=== PATIENT | male | born 1945 | race Caucasian/White ===

== ENCOUNTER 2017-04-26 12:46 | Emergency (ER) | payer BC ==
[~2017-04-26] VITALS: Ht 175.3 cm; Wt 63.5 kg
[2017-04-26 17:39] VITALS: BP 139/63
== END 2017-04-26 17:40 | disposition home or self-care (01) ==
LOC: ER 12:46 → EDBD 12:46 → ER 17:40
DX: S20.212A Contusion of left front wall of thorax, initial encounter (principal); S20.211A Contusion of right front wall of thorax, initial encounter; G89.29 Other chronic pain; M54.9 Dorsalgia, unspecified; Z90.49 Acquired absence of other specified parts of digestive tract; W11.XXXA Fall on and from ladder, initial encounter; Y93.89 Activity, other specified; Y99.8 Other external cause status; Y92.89 Other specified places as the place of occurrence of the external cause
CPT/HCPCS: 71111; 93005

== ENCOUNTER 2019-03-27 03:15 | Inpatient (IN) | payer MEDICARE, OTHER ==
[~2019-03-27] VITALS: Ht 182.9 cm; Wt 70.0 kg
[2019-03-27 03:55] LABS: Basophils # (auto) 0 uL; Basophils % (auto) 0.7 % (0.0-2.0); Eosinophils # (auto) 0 uL; Eosinophils % (auto) 0.7 % (0.0-7.0); Hematocrit 38.5 % (41.0-53.0); Hemoglobin 13.2 g/dL (13.5-17.5); Lymphocytes % (auto) 27.1 % (10.0-50.0); Mean Corpuscular Hemoglobin 33.6 pg (28.0-32.0); Mean Corpuscular Hgb Conc. 34.3 g/dL (32.0-36.0); Monocytes # (auto) 0.3 uL; Monocytes % (auto) 7.2 % (0.0-12.0); Neutrophils # (auto) 2.5 uL; Neutrophils % (auto) 64.3 % (37.0-80.0); Nucleated Red Blood Cells % 0.1 %; Platelet Count (auto) 152 10^3/uL (140-450); Red Blood Cells 3.93 10^6/uL (4.5-5.90); Red Cell Distribution Width 13.6 % (11.8-14.3); White Blood Cell 3.8 10^3/uL (4.4-10.8)
[2019-03-27 04:18] LABS: Albumin 3.3 g/dL (3.4-5.0); BUN/Creatinine Ratio 15.3; Bilirubin, Total 0.5 mg/dL (0.2-1.0); Calcium 7.8 mg/dL (8.5-10.1); Potassium 3.6 mmol/L (3.5-5.1); Total Protein 6.3 g/dL (6.4-8.2)
[2019-03-27] MEDS ORDERED: TEMAZEPAM 15 MG CAP PO PRN (05:45)
[2019-03-27] MEDS ORDERED: cloNIDine HCL 0.1 MG TAB PO PRN (05:45)
[2019-03-27 05:54] LABS: Urine WBC None Seen /hpf (0 - 3)
[2019-03-27 06:19] LABS: Urine Bacteria NONE SEEN /hpf (None Seen); Urine Blood Negative /uL (Negative); Urine Specific Gravity 1.009 (1.001-1.035)
[2019-03-27] MEDS: ONDANSETRON HCL 4 MG/2 ML VIAL IV PRN ×3 (06:34→20:23)
[2019-03-27] MEDS: MORPHINE SULFATE 4 MG/ML SYR/VIAL IV PRN ×3 (06:36→20:23)
--- NOTE | 2019-03-27 08:30 | NUR ---
Telemetry admit from ER [facility] admitted to Telemetry unit after SBAR received. Patient oriented to DNEISE NDIAYE, primary RN, unit, room, bed, and unit policies regarding patient care and visiting hours. Patient now on continuous telemetry monitoring. Patient placed on bedside oxygen, weighed by bedscale and encouraged to call if they need something. All questions and concerns addressed, patient verbalized understanding. Note:
[2019-03-27 09:00] VITALS: BP 150/64
[2019-03-27] MEDS ORDERED: IBUP200C3 PO (09:11)
[2019-03-27] MEDS ORDERED: TRAZ50TA2 PO (09:11)
[2019-03-27] MEDS ORDERED: ATOR10TA PO (09:11)
[2019-03-27] MEDS ORDERED: TOPI100T68 PO (09:12)
[2019-03-27] MEDS ORDERED: KEP500T PO (09:12)
[2019-03-27] MEDS ORDERED: ESCI20TA51 PO (09:12)
[2019-03-27] MEDS ORDERED: LACO200T PO (09:12)
[2019-03-27] MEDS ORDERED: DONETAB6 PO (09:12)
[2019-03-27] MEDS: LACOSAMIDE 50 MG TAB PO SCH ×2 (10:00→21:11)
[2019-03-27] MEDS ORDERED: LEVETIRACETAM 500 MG TAB PO SCH (10:00)
[2019-03-27] MEDS ORDERED: TOPIRAMATE 25 MG TAB PO SCH (10:00)
[2019-03-27] MEDS: FAMOTIDINE 20 MG TAB PO SCH ×2 (11:08→21:12)
[2019-03-27] MEDS: buPROPion HCL 75 MG TAB PO SCH (11:08)
[2019-03-27 13:30] VITALS: BP 140/86
[2019-03-27 13:39] LABS: INR 1.06 (0.9-1.15); Partial Thromboplastin Time 28.8 sec (23.64-32.05)
[2019-03-27 17:05] VITALS: BP 145/66
--- NOTE | 2019-03-27 19:45 | NUR ---
ASSUMED CARE, PT. AWAKE, NO SOB.
--- NOTE | 2019-03-27 20:29 | NUR ---
REPORT GIVEN TO RUDOLPH VALENTINO, TO CONTINUE PT. CARE.
--- NOTE | 2019-03-27 20:29 | NUR ---
RECEIVED REPORT Received report from RUDOLPH Murrieta. Patient is A&O X's 4 with no s/s of distress noted. Patient just received pain medication for right hip/leg pain. Educated patient on pain medication/management and POC. Educated patient to use call light when in need of assistance. Patient verbalized understanding. Bed is in lowest/locked position with padded side rails up X's 2 and call light is within reach of patient. Seizure precautions are in place. Will continue care.
[2019-03-27] MEDS: LEVETIRACETAM 500 MG TAB PO SCH (21:09)
[2019-03-27] MEDS: TOPIRAMATE 100 MG TAB PO SCH (21:12)
[2019-03-27] MEDS: ATORVASTATIN 20 MG TAB PO SCH (21:12)
[2019-03-27 23:13] VITALS: BP 146/71
[2019-03-28] MEDS: ONDANSETRON HCL 4 MG/2 ML VIAL IV PRN (02:30)
[2019-03-28] MEDS: MORPHINE SULFATE 4 MG/ML SYR/VIAL IV PRN ×3 (02:30→19:25)
[2019-03-28 05:24] LABS: Basophils # (auto) 0 uL; Basophils % (auto) 0.7 % (0.0-2.0); Eosinophils # (auto) 0 uL; Eosinophils % (auto) 0.5 % (0.0-7.0); Hematocrit 38.2 % (41.0-53.0); Lymphocytes % (auto) 20.5 % (10.0-50.0); Mean Corpuscular Hemoglobin 33.1 pg (28.0-32.0); Mean Corpuscular Volume 97.4 fL (80.0-100.0); Monocytes # (auto) 0.5 uL; Monocytes % (auto) 10.4 % (0.0-12.0); Neutrophils # (auto) 3.4 uL; Neutrophils % (auto) 67.9 % (37.0-80.0); Platelet Count (auto) 125 10^3/uL (140-450); Red Blood Cells 3.92 10^6/uL (4.5-5.90); Red Cell Distribution Width 13.6 % (11.8-14.3)
[2019-03-28 05:46] VITALS: BP 155/75
[2019-03-28 05:58] LABS: Calcium 7.7 mg/dL (8.5-10.1); Potassium 4.1 mmol/L (3.5-5.1)
--- NOTE | 2019-03-28 08:19 | NUR ---
OPENING SHIFT NOTE ASSUMED CARE OF PATIENT. PATIENT IS AWAKE AND ALERT. NO SOB OR SIGNS OF DISTRESS NOTED. INSTRUCTED ON POC AND TO CALL FOR HELP PRN. BED IN LOWEST POSITION WITH SIDE RAILS UP X2. WILL CONTINUE TO MONITOR.
[2019-03-28 09:15] VITALS: BP 143/60
[2019-03-28] MEDS: FAMOTIDINE 20 MG TAB PO SCH ×2 (09:21→21:01)
[2019-03-28] MEDS: TOPIRAMATE 100 MG TAB PO SCH ×3 (09:22→21:00)
[2019-03-28] MEDS: LEVETIRACETAM 500 MG TAB PO SCH ×2 (09:23→21:00)
[2019-03-28] MEDS: buPROPion HCL 75 MG TAB PO SCH (09:23)
[2019-03-28] MEDS: LACOSAMIDE 50 MG TAB PO SCH ×2 (09:24→21:01)
[2019-03-28 13:00] VITALS: BP_SYST 111; BP_SYST 154; BP_DIAS 60; BP_DIAS 76
[2019-03-28 17:00] VITALS: BP_SYST 152; BP_SYST 182; BP_DIAS 72; BP_DIAS 73
--- NOTE | 2019-03-28 19:15 | NUR ---
OPENING NOTE- NOC SHIFT PATIENT IS ALERT AND ORIENTED X4, ANSWERS IN COMPLETE SENTENCES AND MAKES APPROPRIATE EYE CONTACT. PATIENT IS IN BED, BED IS LOCKED AT LOWEST AND PADDED FOR SEIZURE PRECAUTIONS. BED SIDE TABLE WITHIN REACH, CALL LIGHT WITHIN REACH. DISCUSSED POC WITH PATIENT AND INSTRUCTED PATIENT TO CALL PRN; PATIENT VERBALIZED UNDERSTANDING. WILL CONTINUE TO MONITOR Q1H AND PRN.
[2019-03-28] MEDS: ATORVASTATIN 20 MG TAB PO SCH (21:01)
[2019-03-28 22:00] VITALS: BP 158/66
[2019-03-29] MEDS: MORPHINE SULFATE 4 MG/ML SYR/VIAL IV PRN ×2 (03:50→18:56)
[2019-03-29 04:49] VITALS: BP 148/66
--- NOTE | 2019-03-29 07:30 | NUR ---
Opening Shift Note Assumed care of patient, awake and alert. No S/S of distress/SOB or pain. Instructed on POC and to callfor assist PRN, will continue to monitor for changes Q1hr and PRN.
[2019-03-29 09:00] VITALS: BP 147/84
[2019-03-29] MEDS: LEVETIRACETAM 500 MG TAB PO SCH ×2 (09:56→21:22)
[2019-03-29] MEDS: buPROPion HCL 75 MG TAB PO SCH (09:57)
[2019-03-29] MEDS: TOPIRAMATE 100 MG TAB PO SCH ×3 (09:57→21:23)
[2019-03-29] MEDS: LACOSAMIDE 50 MG TAB PO SCH ×2 (09:57→21:46)
[2019-03-29] MEDS: FAMOTIDINE 20 MG TAB PO SCH ×2 (09:57→21:24)
[2019-03-29 13:00] VITALS: BP 142/63
[2019-03-29] MEDS ORDERED: TRANEXAMIC ACID 20 ML ONE (15:19)
[2019-03-29] MEDS ORDERED: BUPIVACAINE W/ EPINEPH 0.25% INJ 50ML MDV ONE (15:19)
[2019-03-29] MEDS ORDERED: TETRACAINE 1% INJ 2 ML VIAL IJ ONE ×2 (15:20→15:22)
[2019-03-29] MEDS ORDERED: SUCCINYLCHOLINE CHLORIDE 20 MG/ML 10ML VIAL IV ONE (15:20)
[2019-03-29] MEDS ORDERED: MORPHINE SULF(PF) 0.5MG/ML 10ML VIAL ONE ×2 (15:22→15:23)
[2019-03-29] MEDS ORDERED: VANCOMYCIN HCL 1000 MG VL ONE (15:22)
[2019-03-29] MEDS ORDERED: KETOROLAC TROMETH 30 MG/ML 1ML VIAL ONE (15:22)
[2019-03-29] MEDS ORDERED: fentaNYL CITRATE 100 MCG/2 ML VL ONE (15:23)
[2019-03-29] MEDS ORDERED: MIDAZOLAM HCL 1MG/1ML-2 ML VIAL ONE (15:23)
[2019-03-29] MEDS ORDERED: ONDANSETRON HCL 4 MG/2 ML VIAL ONE (15:23)
[2019-03-29] MEDS ORDERED: PROPOFOL 10 MG/ML 20 ML IV ONE (15:23)
[2019-03-29] MEDS ORDERED: SODIUM CHLORIDE LOCK 10 ML ONE (15:23)
[2019-03-29] MEDS ORDERED: EPINEPHrine HCL 1 MG/1 ML AMP ONE (15:23)
[2019-03-29] MEDS ORDERED: BUPIVACAINE/DEXTROSE MPF 0.75% 2 ML AMP IT ONE (15:23)
--- NOTE | 2019-03-29 15:24 | NUR ---
PATIENT WHEELED DOWN TO RECOVERY ROOM FOR PROCEDURE. NO S/S OF DISTRESS NOTED AT THIS TIME.
[2019-03-29] MEDS ORDERED: ceFAZolin 1GM/50ML 50 ML IV ONE (15:36)
--- NOTE | 2019-03-29 15:38 | NUR ---
NUTRITION ASSESSMENT NOTES Please refer to link notes of nutrition screen form filed under the intervention section of the plan of care for further details. Est. Needs: 1850 kcal to 2350 kcal (25-30 kcal/kgBW), 74 gms to 89 gms pro (1.0-1.2 gms/kgBW). Will continue to monitor pertinent labs and reassess nutrient need prn Thank you. Addendum: 03/29/19 at [address] Amended: Links added.
--- NOTE | 2019-03-29 15:55 | NUR ---
PATIENT BROUGHT BACK UP TO FLOOR. PER RIM FIRE CHARGER OPERATORRUDOLPH SNIDER PATIENT WILL BE SCHEDULED FOR PROCEDURE TOMORROW THEY WERE BUSY.
--- NOTE | 2019-03-29 16:00 | NUR ---
GEOFF NORRIS OF POSTPONEMENT OF SURGERY UNTIL TOMORROW.
--- NOTE | 2019-03-29 16:22 | NUR ---
Pt is an alert and oriented 74 yo male that has been functioning independently and resides with his spouse, Lalita. Pt has a daughter that resides in the area and is supportive as well as involved. Pt states he had a previous hip fracture and went to [facility] post discharge for rehab. Pt and spouse both state they do not want rehab placement and want to go home after discharge. Pt is scheduled for surgery today. Discharge planning would involve a fww, possible [facility] and [facility] for physical therapy. Pt and spouse state they have no preference. Provided choice list and selected [facility]. Signed choice letter and all arrangements to be completed after surgery. Will continue to monitor and provide intervention as appropriate. Addendum: 03/29/19 at 1625 by MIGUEL GARCIA Amended: Links added.
[2019-03-29 17:00] VITALS: BP 161/61
--- NOTE | 2019-03-29 20:20 | NUR ---
RECEIVE IN BED IS AWARE HE WILL BE NPO AFTER MIDNIGHT FOR SURGERY
[2019-03-29] MEDS: ATORVASTATIN 20 MG TAB PO SCH (21:25)
[2019-03-29 22:00] VITALS: BP_SYST 139; BP_SYST 146; BP_DIAS 61; BP_DIAS 96
[2019-03-30] MEDS: MORPHINE SULFATE 4 MG/ML SYR/VIAL IV PRN ×2 (01:04→15:59)
[2019-03-30 04:52] VITALS: BP 140/64
--- NOTE | 2019-03-30 06:40 | NUR ---
TO PREOP HOLDING VIA BED
[2019-03-30] MEDS: BUPIVACAINE W/ EPINEPH 0.25% INJ 50ML MDV ONE ×2 (06:58→09:10)
[2019-03-30] MEDS ORDERED: MORPHINE SULF(PF) 0.5MG/ML 10ML VIAL ONE (06:59)
[2019-03-30] MEDS ORDERED: VANCOMYCIN HCL 1000 MG VL ONE (07:00)
[2019-03-30] MEDS: KETOROLAC TROMETH 30 MG/ML 1ML VIAL ONE ×2 (07:00→09:10)
[2019-03-30] MEDS ORDERED: ceFAZolin 1GM/50ML 100 ML IV ONE (07:04)
[2019-03-30] MEDS ORDERED: LIDOCAINE 1% HCL (LOCAL ANESTH.) INJ 20ML MDV ONE (07:10)
[2019-03-30] MEDS ORDERED: SUCCINYLCHOLINE CHLORIDE 20 MG/ML 10ML VIAL IV ONE (07:10)
[2019-03-30] MEDS ORDERED: ROCURONIUM 10MG/ML 10ML VIAL IV ONE (07:13)
[2019-03-30] MEDS ORDERED: ETOMIDATE (2MG/ML) 20ML VIAL IV ONE (07:13)
[2019-03-30] MEDS ORDERED: MIDAZOLAM HCL 1MG/1ML-2 ML VIAL ONE (07:13)
[2019-03-30 07:23] LABS: Basophils # (auto) 0 uL; Basophils % (auto) 0.3 % (0.0-2.0); Eosinophils # (auto) 0.1 uL; Eosinophils % (auto) 1.2 % (0.0-7.0); Hematocrit 37.5 % (41.0-53.0); Hemoglobin 12.9 g/dL (13.5-17.5); Lymphocytes # (auto) 0.8 uL; Lymphocytes % (auto) 15.5 % (10.0-50.0); Mean Corpuscular Hemoglobin 33.7 pg (28.0-32.0); Mean Corpuscular Hgb Conc. 34.5 g/dL (32.0-36.0); Mean Corpuscular Volume 97.6 fL (80.0-100.0); Monocytes # (auto) 0.6 uL; Monocytes % (auto) 11.9 % (0.0-12.0); Neutrophils # (auto) 3.5 uL; Neutrophils % (auto) 71.1 % (37.0-80.0); Platelet Count (auto) 135 10^3/uL (140-450); Red Blood Cells 3.84 10^6/uL (4.5-5.90); Red Cell Distribution Width 13.5 % (11.8-14.3)
[2019-03-30] MEDS ORDERED: METOCLOPRAMIDE HCL 5MG/ml INJ 2ml VIAL ONE (07:23)
[2019-03-30] MEDS ORDERED: fentaNYL CITRATE 100 MCG/2 ML VL ONE (07:31)
[2019-03-30 07:40] LABS: INR 1.03 (0.9-1.15)
[2019-03-30] MEDS ORDERED: ONDANSETRON HCL 4 MG/2 ML VIAL IV PRN (07:45)
[2019-03-30] MEDS ORDERED: NALOXONE HCL 0.4 MG/ML VIAL IV PRN (07:45)
[2019-03-30] MEDS ORDERED: HYDROmorphone HCL 2 MG/ML VL IV PRN (07:45)
[2019-03-30] MEDS ORDERED: hydrALAZINE HCL 20 MG/ML VL IV PRN (07:45)
--- NOTE | 2019-03-30 08:01 | NUR ---
Opening Shift Note Assumed care of patient, PT is currently down in OR for procedure, noc rn took to OR room
[2019-03-30] MEDS: TOPIRAMATE 100 MG TAB PO SCH ×3 (09:00→21:13)
[2019-03-30] MEDS: LEVETIRACETAM 500 MG TAB PO SCH ×2 (09:00→21:12)
[2019-03-30] MEDS ORDERED: NEOSTIGMINE 1 MG/ML INJ (10mg/10ML VIAL) ONE (09:01)
[2019-03-30] MEDS ORDERED: GLYCOPYRROLATE 0.2 MG/ML 1ML VIAL ONE (09:01)
[2019-03-30] MEDS ORDERED: ceFAZolin 1GM/50ML 50 ML IV SCH (09:15)
[2019-03-30] MEDS: HYDROmorphone HCL 2 MG/ML VL IV PRN ×3 (09:23→09:47)
--- NOTE | 2019-03-30 09:56 | NUR ---
md smith at station to round on pt informed pt still in OR and not on the floor
--- NOTE | 2019-03-30 09:57 | NUR ---
Recived report from OR nurse status post right hemiplasty BP 164/67
--- NOTE | 2019-03-30 10:12 | NUR ---
pt arrived on unit
--- NOTE | 2019-03-30 10:20 | NUR ---
pt and daughter at bedside with pt
[2019-03-30] MEDS: FAMOTIDINE 20 MG TAB PO SCH ×2 (10:38→21:12)
[2019-03-30] MEDS: buPROPion HCL 75 MG TAB PO SCH (10:38)
[2019-03-30] MEDS: HYDROcodone-ACET 5/325MG TAB PO PRN (10:38)
[2019-03-30] MEDS: ENOXAPARIN SOD 40 MG/0.4 ML SYRINGE SC SCH (10:38)
[2019-03-30] MEDS: LACTATED RINGER'S 1,000 ML IV SCH ×2 (10:39→19:10)
[2019-03-30] MEDS: LACOSAMIDE 50 MG TAB PO SCH ×2 (10:39→21:32)
--- NOTE | 2019-03-30 12:05 | NUR ---
New iv site started right upper arm 20 gauge tolerated well iv patent blood return noted no c/o pain or discomfort, LAC iv discontinued no bleeding noted
[2019-03-30 13:00] VITALS: BP 127/62
--- NOTE | 2019-03-30 13:38 | NUR ---
called pharmacy to check compatibility of lactated ringers with ancef, per pharmacy it is compatible
[2019-03-30] MEDS: ceFAZolin 1GM/50ML 50 ML IV SCH ×2 (13:45→20:59)
--- NOTE | 2019-03-30 15:12 | NUR ---
D/C Planning Per consult for [facility] for Physical Therapy. Mian provided information and choice letter to Pt. Contact [facility] Ph:) Fax:) faxed medical records. Per Jamshid from [facility] Pt has been accepted and service to start within 48hrs upon d/c day. Pt was sleeping however, I spoke to Pt Lalita regarding home health acceptance. Pt Lalita verbalize understanding d/c plan. Addendum: 03/30/19 at 1518 by CARLOS HOLLY Amended: Links added.
[2019-03-30 16:35] VITALS: BP 126/62
--- NOTE | 2019-03-30 17:45 | NUR ---
bed bath given to pt, no skin breakdown or redness noted, dressing to right hip intact and dry
[2019-03-30] MEDS: ACETAMINOPHEN 325 MG TAB PO PRN (21:00)
[2019-03-30] MEDS: ATORVASTATIN 20 MG TAB PO SCH (21:13)
[2019-03-30 21:44] VITALS: BP 146/65
[2019-03-31] MEDS: HYDROcodone-ACET 5/325MG TAB PO PRN (01:46)
[2019-03-31 01:48] VITALS: BP 115/81
[2019-03-31] MEDS: LACTATED RINGER'S 1,000 ML IV SCH ×2 (03:01→15:10)
[2019-03-31] MEDS: ceFAZolin 1GM/50ML 50 ML IV SCH (03:01)
[2019-03-31 05:06] VITALS: BP 130/56
[2019-03-31] MEDS: MORPHINE SULFATE 4 MG/ML SYR/VIAL IV PRN ×3 (06:04→22:17)
--- NOTE | 2019-03-31 07:19 | NUR ---
Patient sitting in bed, awake, oriented x4, on O2 at 1 LPM, no acute distress noted. Aqua cell dressing intact, no bleeding noted on the right hip.
--- NOTE | 2019-03-31 07:20 | NUR ---
About 200 ml of dark lou urine emptied form the urinal.
[2019-03-31 08:43] VITALS: BP 152/62
[2019-03-31] MEDS: LACOSAMIDE 50 MG TAB PO SCH ×2 (10:00→22:04)
[2019-03-31] MEDS: FAMOTIDINE 20 MG TAB PO SCH ×2 (10:11→21:21)
[2019-03-31] MEDS: buPROPion HCL 75 MG TAB PO SCH (10:11)
[2019-03-31] MEDS: TOPIRAMATE 100 MG TAB PO SCH ×3 (10:11→21:21)
[2019-03-31] MEDS: LEVETIRACETAM 500 MG TAB PO SCH ×2 (10:11→21:20)
[2019-03-31] MEDS: ENOXAPARIN SOD 40 MG/0.4 ML SYRINGE SC SCH (10:12)
--- NOTE | 2019-03-31 10:15 | NUR ---
Family member at bedside.
--- NOTE | 2019-03-31 10:18 | NUR ---
About 400 ml of dark lou urine emptied from the urinal.
--- NOTE | 2019-03-31 10:18 | NUR ---
Patient stated he's in pain, asked for pain shot. Explained to patient the Morphine Sulf Inj is not due at this time. Patient refused Harrison , stated it makes him feel weird. Patient will wait for the Morphine Sulf Inj when it's due.
--- NOTE | 2019-03-31 11:10 | NUR ---
Forest Pathology Teacher Yoana Hawley to come over and speak with the patient as requested by the family member.
--- NOTE | 2019-03-31 11:24 | NUR ---
Carlos Sousa at bedside. MD to discharge the patient today. Informed MD patient has no bowel movement yet since [address] Meza ordered Lactulose 60 ml once for constipation, follow up with physical therapy, give the Morphine Sulf Inj now before the physical therapy, call Robotics Specialist for walker at home.
[2019-03-31] MEDS ORDERED: LACTULOSE 20Gm/30ML SOLN PO ONE (11:30)
--- NOTE | 2019-03-31 11:40 | NUR ---
Patient and said they want a wheelchair, they will buy a walker. Explained to patient and , it will depend on the insurance if they will cover the wheelchair. Carlos Sousa ordered to change the Community Service Manager Consult for wheelchair instead of walker.
--- NOTE | 2019-03-31 11:51 | NUR ---
Patient stated his right hip pain level at 9/10 at this time. Morphine Sulf Inj 2 mg given for pain as ordered.
[2019-03-31 13:00] VITALS: BP 158/69
--- NOTE | 2019-03-31 14:25 | NUR ---
Paged Center Consultant Monse.
--- NOTE | 2019-03-31 14:34 | NUR ---
REPORT RECEIVED WILL CONTINUE TO MONITOR AND INITIATE PLAN OF CARE. PLAN FOR DISCHARGE-PENDING SOCIAL SERVICE FOR WHEELCHAIRALBERTO UPDATED BY BEDSIDE RN RONNI.
--- NOTE | 2019-03-31 14:39 | NUR ---
VOID LAST NOTED--NOT ASSUMING CARE OF THIS PATIENT. BEDSIDE RN ETHYL TO CONTINUE CARE.
--- NOTE | 2019-03-31 14:52 | NUR ---
requested that patient be transferred to rehab because during physical therapy, patient needed maximum assist getting up from bed to a chair. Will call Dr. Meza.
--- NOTE | 2019-03-31 14:55 | NUR ---
Called Carlos Sousa that requested to transfer the patient to rehab, stated that patient is unable to transfer from bed to a chair without maximum assist during physical therapy. Dr. Meza ordered to hold the discharge home with home health services, ordered Wire Preparation Worker Consult for SNF transfer, he will see the patient tomorrow. Informed the patient and .
--- NOTE | 2019-03-31 15:00 | NUR ---
Patient sitting in chair, asked if he can have cigar. Explained to patient he cannot lit up in the room, smoking in the hospital not allowed, I can call the doctor for orders for Nicotine patch. Patient refused Nicotine patch. Explained to patient if he will smoke off unit, he will have to sign an Against Medical Advice to smoke, he needs maximum assist getting to a wheelchair and getting back to bed, and his will have to push the wheelchair going off unit and back to room. Patient said he will stay in the room, he will not smoke. at bedside.
--- NOTE | 2019-03-31 15:01 | NUR ---
Patient tolerating food. Lactated Ringers held when patient tolerating liquids.
--- NOTE | 2019-03-31 15:18 | NUR ---
Paged the Physical Therapist that patient wants to go back to bed. Patient in chair. at bedside.
[2019-03-31 17:32] VITALS: BP 156/70
--- NOTE | 2019-03-31 19:40 | NUR ---
Opening Shift Note Assumed care of patient, awake and alert. No S/S of distress/SOB or pain. Dressing to right hip dry and intact, no drainage/bleeding noted. Instructed on POC and to call for assist PRN, patient verbalized understanding, call light within reach, bed alarm on, will continue to monitor for changes Q1hr and PRN.
[2019-03-31] MEDS: ATORVASTATIN 20 MG TAB PO SCH (21:21)
[2019-03-31 22:00] VITALS: BP 134/60
[2019-04-01] MEDS: LACTATED RINGER'S 1,000 ML IV SCH ×2 (01:10→08:55)
[2019-04-01 05:00] VITALS: BP 131/68
--- NOTE | 2019-04-01 07:40 | NUR ---
Patient sitting in bed, awake, oriented x4, no acute distress noted.
[2019-04-01] MEDS: TOPIRAMATE 100 MG TAB PO SCH ×3 (08:58→21:23)
[2019-04-01] MEDS: LEVETIRACETAM 500 MG TAB PO SCH ×2 (08:58→21:21)
[2019-04-01] MEDS: ENOXAPARIN SOD 40 MG/0.4 ML SYRINGE SC SCH (08:59)
[2019-04-01] MEDS: buPROPion HCL 75 MG TAB PO SCH (08:59)
[2019-04-01] MEDS: FAMOTIDINE 20 MG TAB PO SCH ×2 (08:59→21:26)
[2019-04-01 09:00] VITALS: BP 127/76
[2019-04-01] MEDS: LACOSAMIDE 50 MG TAB PO SCH ×2 (09:00→21:26)
--- NOTE | 2019-04-01 09:25 | NUR ---
Eligibility Worker Monse came over. Monse said patient got accepted at [facility], to call her again if patient is ready for discharge, for bed availability and transportation. Waiting for hospitalist to come over.
--- NOTE | 2019-04-01 09:31 | NUR ---
D/C Planning Per consult for SNF placement for rehab. Pt Lalita was at bedside when information and choice letter was given to Pt. Pt and requested [facility]. Pt and verbalize understanding d/c plan. Contact [facility] Ph:) Fax:) faxed medical records. Per Zia from [facility] Pt has been accepted to room 104 bed [address] Raines. Contact [facility] Ph:) spoke to Matias. Advised Matias from [facility] to arrange transportation at 15:00 via gurney with oxygen. Per Matias from [facility] order picker/assembler time will be between 15:00-16:00 via gurney with oxygen. Informed RUDOLPH Greene. Addendum: 04/01/19 at 0945 by CARLOS HOLLY Amended: Links added.
--- NOTE | 2019-04-01 09:55 | NUR ---
Patient in the room, having physical therapy, being assisted by
--- NOTE | 2019-04-01 10:00 | NUR ---
Patient sitting in chair, patient has slurred speech. BP = 85/72, Heart rate = 95, RR = 19, O2 Sat = 98% to 100% on O2 at 2 LPM. said patient started having slurred speech after walking for physical therapy. Family at bedside.
--- NOTE | 2019-04-01 10:08 | NUR ---
Carlos Sousa at bedside. Patient is sitting in chair. MD assessed the patient. Dr. Meza to put in orders for CT Scan Brain, Neurology Consult with Dr. Purvis.
--- NOTE | 2019-04-01 10:15 | NUR ---
Mikie Sousa. speaking with Dr. Purvis on the phone.
--- NOTE | 2019-04-01 10:21 | NUR ---
Called [facility] ([phone]). Informed Nurse Silvia that patient's transfer is cancelled today as ordered.
--- NOTE | 2019-04-01 10:23 | NUR ---
Called Supervisor Scenic Arts Monse that patient's transfer to [facility] is cancelled today as per Mikie Sousa. I already called Nurse Silvia at [facility].
--- NOTE | 2019-04-01 10:30 | NUR ---
D/C search analyst Ramona advised me at 10:20am this morning Dr. Meza placed orders for CT Scan Brain, Neurology Consult with Dr. Purvis. Followed up call to [facility] spoke to Zia. Informed Zia Pt will not be discharging today and I would follow up with her upon d/c day. Followed up call to [facility] transport spoke to Matias regarding transportation cancelation for now. Will followed up with Facility and transportation upon d/c day.
--- NOTE | 2019-04-01 11:23 | NUR ---
Informed Carlos Sousa of the CT Brain without contrast results.
[2019-04-01 13:00] VITALS: BP 132/68
--- NOTE | 2019-04-01 14:02 | NUR ---
Carlos Sousa called back. ordered MRI Brain w/o Contrast Stat. Dr. Meza ordered to clarify with MRI if they will be able to do it, with patient's vagal stimulator implant on the left upper chest and patient is post op right hip hemiarthroplasty. If MRI cannot be done, wait for Dr. Purvis to see the patient for Neurology Consult.
--- NOTE | 2019-04-01 14:14 | NUR ---
Nutrition Follow-up Notes Wt.: 69.8 kg as of yesterday. Pt's on oxygen via nasal cannula, asleep, no immediate family member at bedside during rounds this morning. Pt's s/p Right hip hemiarthroplasty (03/30/19), no signs of distress noted earlier, currently on Regular diet with fair PO intake aeb 70% ave. consumed meals (x6) in last 2.5 days. Noted pt's for active Neurology consult. Est. Needs: 1850 kcal to 2350 kcal (25-30 kcal/kgBW), 74 gms to 89 gms pro (1.0-1.2 gms/kgBW). Will continue to monitor pertinent labs and reassess nutrient need prn Labs: No new labs today; 03/28/19 Ca 7.7 L, Tpro 6.9 L, Alb 3.3 L Skin: Tony scale 14, mod risk, pt's right hip incision dry and intact per travel pt. GI: Pt's no bowel activity since per travel pt. PES: Partially resolved: Increased nutrient needs r/t acute/chronic medical/ nutritional status aeb 92% IBW, BMI 74.4 kg/m2, decreased muscle mass, hx of wt loss, mild hypoalbuminemia, NPO. Altered nutrition related lab values r/t current/chronic medical condition aeb hypocalcemia and mild hypoalbuminemia Will continue to monitor PO intake, skin status, pertinent labs and weight trend. F/u in 3 to 5 days. Rec.: 1.) Consider Ensure Enlive 1 carton TID 1 carton BID. 2.) Continue close supervision during meals. 3.) If Albumin continues trending down, consider Prostat 1 pkt BID. 4.) Refer pt to RD for further nutrition education and weight monitoring upon discharge. 5.) Continue current plan of care.
--- NOTE | 2019-04-01 14:20 | NUR ---
Called Carlos Sousa that the card for vagal stimulator is not with the patient. high value associate said they need the card to find out if it's compatible with the machine, if not, MRI cannot be done. Dr. Meza ordered if patient's family member can cigar packer and picker the card from home then call MRI and wait for Dr. Purvis to see the patient for Neurology Consult.
--- NOTE | 2019-04-01 14:25 | NUR ---
Called Jaycob of MRI that family member is going home to picker/puller the vagal stimulator card. MRI open up to 4:00 pm today.
--- NOTE | 2019-04-01 15:22 | NUR ---
Dieudonne Devries came over, given the copy of [employer] [facility] card of the patient. Jaycob took the copy of the card to Radiology/MRI to make calls if it's compatible with the MRI machine.
--- NOTE | 2019-04-01 15:40 | NUR ---
Jaycob came back with the copy of the [facility] [employer] [facility] card, said he made calls to the company but there's no answer, it has to be clarified if the vagal stimulator needs to be calibrated or off before and after the MRI is done just like a pacemaker when a patient has orders for MRI and if it's compatible with the machine. MRI cannot be done today. Will wait for Dr. Purvis to see the patient for Neurology Consult.
--- NOTE | 2019-04-01 15:42 | NUR ---
Family made aware that MRI cannot be done until it's clarified with [employer] if patient's vagal stimulator has to be calibrated or off before and after the MRI. Heddler Yoana Hawley also speaking with the family. Waiting for Dr. Purvis to come over.
[2019-04-01 17:00] VITALS: BP 139/66
--- NOTE | 2019-04-01 18:10 | NUR ---
Dr. Purvis came over. made aware patient has a vagal stimulator implant on left upper chest, MRI Brain w/o contrast was not done.
--- NOTE | 2019-04-01 18:35 | NUR ---
Dr. Purvis has seen the patient for Neurology Consult. Patient was sitting on the edge of the bed. Patient said he wants to get up and smoke cigar. Explained to patient he's too weak to get up and walk by himself. Assisted the patient back to bed.
--- NOTE | 2019-04-01 20:00 | NUR ---
RECEIVE IN BED SPEECH IS CLEAR NO VOICED COMPLAINS
[2019-04-01 20:34] LABS: Folate (Folic Acid) 18.05 ng/mL (5.38-24)
[2019-04-01 22:00] VITALS: BP 140/71
[2019-04-01] MEDS ORDERED: ATORVASTATIN 20 MG TAB PO SCH (22:00)
[2019-04-01] MEDS ORDERED: DONEPEZIL HYDROCHLORIDE 5 MG TAB PO SCH (22:00)
[2019-04-02 05:00] VITALS: BP 137/69
[2019-04-02 07:20] LABS: Cholesterol 104 mg/dL (< 200); HDL Cholesterol 49 mg/dL (40-59); LDL Cholesterol 48 mg/dL (< 100); Triglycerides 50 mg/dL (< 150)
--- NOTE | 2019-04-02 07:55 | NUR ---
PATIENT ROUNDS PATIENT SITTING IN BED, NO DISTRESS NOTED, RR EQUAL AND NONLABORED, NO DISTRESS NOTED. BED IN LOWEST POSITION, SIDE RAILS UP X2, CALL LIGHT WITHIN REACH, PATIENTS AT BEDSIDE, ALL QUESTIONS AND CONCERNS ADDRESSED. WILL CONTINUE TO MONITOR AND INITIATE PLAN OF CARE.
[2019-04-02] MEDS: buPROPion HCL 75 MG TAB PO SCH (08:56)
[2019-04-02] MEDS: TOPIRAMATE 100 MG TAB PO SCH ×2 (08:57→12:36)
[2019-04-02] MEDS: LEVETIRACETAM 500 MG TAB PO SCH (08:57)
[2019-04-02] MEDS: ACETAMINOPHEN 325 MG TAB PO PRN (08:58)
[2019-04-02] MEDS: FAMOTIDINE 20 MG TAB PO SCH (08:58)
[2019-04-02 09:00] VITALS: BP 121/59
[2019-04-02] MEDS: LACOSAMIDE 50 MG TAB PO SCH (09:09)
[2019-04-02] MEDS ORDERED: ASPirin-EC 81 mg tab PO SCH (10:00)
--- NOTE | 2019-04-02 10:15 | NUR ---
PT PHYSICAL THERAPIST AT BEDSIDE FOR THERAPY
--- NOTE | 2019-04-02 10:45 | NUR ---
DR NORRIS AT BEDSIDE PATIENT AND FAMILY UPDATED ON PLAN OF CARE AND TRANSFER TO SNF TODAY. ALL QUESTIONS AND CONCERNS ADDRESSED BY DR NORRIS.
--- NOTE | 2019-04-02 11:19 | NUR ---
MD DR BURCH PAGED PER PATIENT REQUEST PATIENTS STATED THAT THE PATIENT HAS SLURRED SPEECH WHEN AMBULATING WITH PHYSICAL THERAPIST TODAY AND WANTS TO UPDATE DR BURCH OF THIS- I SPOKE WITH NEIL PHYSICAL THERAPIST AND HE STATED PATIENT TOLERATED THERAPY WELL, PATIENT HAD NO SLURRED SPEECH OR DISTRESS DURING ACTIVITY PATIENT HAD JUST STATED THAT HE WAS HAVING PAIN IN HIS RIGHT HIP/SURGICAL SITE. TYLENOL HAD BEEN ADMINISTERED PER PATIENT REQUEST APPROXIMATELY 1 HR PRIOR TO THERAPY. PATIENT REFUSING MORPHINE STATED "HE DOESN'T WANT SOMETHING THAT STRONG AND THE NORCO MAKES HIM ANGRY." DR NORRIS IS AWARE OF THIS AND ORDER IS FOR TRANSFER TO [facility] TODAY. PATIENT TO FOLLOW UP WITH DR BURCH AND MARY OUTPATIENT.
--- NOTE | 2019-04-02 12:25 | NUR ---
DR BURCH REPAGED-WAITING FOR CALL BACK
--- NOTE | 2019-04-02 12:58 | NUR ---
PT PHYSICAL THERAPIST ASSISTED PATIENT BACK TO BED FROM BEDSIDE CHAIR. PATIENT TOLERATED WELL, NO DISTRESS NOTED.
[2019-04-02 13:00] VITALS: BP 132/62
[2019-04-02] MEDS: MORPHINE SULFATE 4 MG/ML SYR/VIAL IV PRN (14:19)
--- NOTE | 2019-04-02 14:25 | NUR ---
PT PATIENT MEDICATED WITH MORPHINE PER PATIENT REQUEST AND PLAN FOR PHYSICAL THERAPIST TO AMBULATE WITH PATIENT AGAIN AT 15:00
--- NOTE | 2019-04-02 14:54 | NUR ---
SOC SERV SPOKE WITH CARLOS AND [facility] ETA 16:30-17:30. PATIENT AND FAMILY AWARE.
--- NOTE | 2019-04-02 15:19 | NUR ---
D/C Planning Followed up call to [facility] Ph:( [phone]) spoke to Zia. Advised Zia from [facility] Pt will be discharging today. Per Zia Pt will be going to same room [address] Raines. Contact [facility] Ph:( [phone]) spoke to Matias. Advised Matias from [facility] to arrange transportation between 16:30-17:30 via gurney with oxygen. Informed RUDOLPH Perez. Addendum: 04/02/19 at 1523 by CARLOS GARCIA Amended: Links added.
--- NOTE | 2019-04-02 15:20 | NUR ---
REPORT ATTEMPTED TO CALL REPORT- PER WOOLEN TESTER THE RN IS IN A MEETING AND ASKED TO HAVE ME CALL BACK AT 16:00.
--- NOTE | 2019-04-02 16:06 | NUR ---
REPORT CALLED [facility] [phone] FOR REPORT ON PATIENT TRANSFER. SPOKE WITH ALLI GALDAMEZ. ALL QUESTIONS AND CONCERNS ADDRESSED.
--- NOTE | 2019-04-02 16:45 | NUR ---
IV removal IV DC'd with clean sterile technique by covering RN Ethyl, catheter fully intact. Pressure dressing applied to site. Patient tolerated well. NOTE:
--- NOTE | 2019-04-02 16:50 | NUR ---
Discharge instructions given as ordered. Encourage to follow up with PMD as instructed. All questions and concerns addressed. Patient verbalized understanding. Medication reconciliation form completed and copy given to patient. IV removed with catheter intact, pressure dressing applied. Patient taken to vehicle via gurney with all personal belongings, accompanied by [facility] staff and family member. No distress noted at time of departure.
== END 2019-04-02 16:50 | DRG 469 ==
LOC: EDBD 03:15 → ER 03:15 → OVERFLOW 03:16 → WEST WING 08:09
PROVIDERS: ADMIT Nurse Practitioner; ATTEND Family Medicine
PROC: 0SRR0JZ Replacement of Right Hip Joint, Femoral Surface with Synthetic Substitute, Open Approach (ICD-10-PCS; principal; 2019-03-30 07:14)
DX: S72.001A Fracture of unspecified part of neck of right femur, initial encounter for closed fracture (principal); I63.9 Cerebral infarction, unspecified; S73.005A Unspecified dislocation of left hip, initial encounter; G40.209 Localization-related (focal) (partial) symptomatic epilepsy and epileptic syndromes with complex partial seizures, not intractable, without status epilepticus; E78.00 Pure hypercholesterolemia, unspecified; E78.5 Hyperlipidemia, unspecified; Y93.01 Activity, walking, marching and hiking; W01.0XXA Fall on same level from slipping, tripping and stumbling without subsequent striking against object, initial encounter; F32.9 Major depressive disorder, single episode, unspecified; G62.9 Polyneuropathy, unspecified; I10 Essential (primary) hypertension; F17.210 Nicotine dependence, cigarettes, uncomplicated; G89.29 Other chronic pain; Z79.82 Long term (current) use of aspirin; Z79.899 Other long term (current) drug therapy; Z82.49 Family history of ischemic heart disease and other diseases of the circulatory system; Y92.89 Other specified places as the place of occurrence of the external cause; Y99.8 Other external cause status; Z90.49 Acquired absence of other specified parts of digestive tract
CPT/HCPCS: 36415; 70450; 71045; 72170; 73501; 73502; 73700; 80048; 80053; 80061; 81001; 82607; 82746; 84443; 85025; 85610; 85730; 86850; 86900; 86901; 93005; 93306; 93886; 97110; 97116; 97530; A4565; C1776; G0378; J0171; J0330; J0690; J1885; J2001; J2250; J2405; J2704

== ENCOUNTER 2021-05-15 18:12 | Inpatient (IN) | payer MEDICARE, OTHER ==
[~2021-05-15] VITALS: Ht 182.9 cm; Wt 85.3 kg
[~2021-05-15 18:12] MED LIST: ASPI81CH43 PO; ATOR10TA PO; BUPR75TA11 PO; CLOP75TA28 PO; DONETAB6 PO; ESCI-34 PO; FERR-20 PO; LACO200T PO; LEVE500T32 PO; TOPI200T43 PO; TOPI50TA53 PO; TRAZ50TA2 PO
[2021-05-15 20:05] LABS: Basophils # (auto) 0 10 ^3/uL (0-0.2); Basophils % (auto) 0.9 % (0.0-2.0); Eosinophils # (auto) 0.1 10 ^3/uL (0-0.8); Hematocrit 38.6 % (41.0-53.0); Hemoglobin 13.3 g/dL (13.5-17.5); Lymphocytes % (auto) 46.3 % (10.0-50.0); Mean Corpuscular Hemoglobin 33.4 pg (28.0-32.0); Mean Corpuscular Hgb Conc. 34.4 g/dL (32.0-36.0); Mean Corpuscular Volume 97.2 fL (80.0-100.0); Monocytes # (auto) 0.3 10 ^3/uL (0-1.3); Monocytes % (auto) 7.5 % (0.0-12.0); Neutrophils # (auto) 1.9 10 ^3/uL (1.6-8.6); Neutrophils % (auto) 43.3 % (37.0-80.0); Nucleated Red Blood Cells % 0.1 %; Red Blood Cells 3.97 10^6/uL (4.5-5.90); Red Cell Distribution Width 13.4 % (11.8-14.3); White Blood Cell 4.3 10^3/uL (4.4-10.8)
[2021-05-15 20:09] LABS: Albumin 3.7 g/dL (3.4-5.0); Calcium 8.4 mg/dL (8.5-10.1); Magnesium 2.9 mg/dL (1.6-2.6); Potassium 4.4 mmol/L (3.5-5.1)
[2021-05-15 20:15] LABS: Bilirubin, Total 0.3 mg/dL (0.2-1.0)
[2021-05-15] MEDS ORDERED: ACETAMINOPHEN 325 MG TAB PO PRN (22:45)
[2021-05-15] MEDS ORDERED: ONDANSETRON HCL 4 MG/2 ML VIAL IV PRN (22:45)
[2021-05-15] MEDS ORDERED: NITROGLYCERIN 0.4 MG SL TAB SL PRN (22:45)
[2021-05-15] MEDS ORDERED: MORPHINE SULFATE INJECTION 2 MG/ML SYRG IV PRN (22:45)
[2021-05-15 23:57] LABS: Urine Bacteria NONE SEEN /hpf (None Seen); Urine Blood Negative /uL (Negative); Urine Specific Gravity 1.009 (1.001-1.035); Urine WBC <1 /hpf (0 - 3)
[2021-05-16 03:15] VITALS: BP 151/61
[2021-05-16] MEDS ORDERED: TRAZ100T3 PO (04:11)
[2021-05-16] MEDS ORDERED: MELO1TAB56 PO (04:11)
[2021-05-16] MEDS ORDERED: LEVO5TAB25 PO (04:11)
[2021-05-16] MEDS ORDERED: APIX5TAB PO (04:11)
[2021-05-16 06:00] VITALS: BP 136/64
[2021-05-16 08:00] VITALS: BP 128/56
[2021-05-16 09:55] LABS: BUN/Creatinine Ratio 24.2; Calcium 8.1 mg/dL (8.5-10.1); Potassium 4.7 mmol/L (3.5-5.1)
[2021-05-16] MEDS ORDERED: TOPIRAMATE 100 MG TAB PO SCH (10:00)
[2021-05-16] MEDS ORDERED: ASPirin 81 mg TAB PO SCH (10:00)
[2021-05-16] MEDS ORDERED: buPROPion HCL 75 MG TAB PO SCH (10:00)
[2021-05-16] MEDS ORDERED: levETIRAcetam 500 MG TAB PO SCH (10:00)
[2021-05-16] MEDS ORDERED: CLOPIDOGREL BISULFATE 75 MG TAB PO SCH (10:00)
[2021-05-16] MEDS ORDERED: APIXABAN 5 MG TAB PO SCH (10:00)
[2021-05-16 10:55] LABS: Basophils # (auto) 0 10 ^3/uL (0-0.2); Basophils % (auto) 0.6 % (0.0-2.0); Eosinophils # (auto) 0.1 10 ^3/uL (0-0.8); Eosinophils % (auto) 2.4 % (0.0-7.0); Hemoglobin 12.7 g/dL (13.5-17.5); Lymphocytes # (auto) 1.3 10 ^3/uL (0.4-5.4); Lymphocytes % (auto) 37.6 % (10.0-50.0); Mean Corpuscular Hemoglobin 33.3 pg (28.0-32.0); Mean Corpuscular Hgb Conc. 34.3 g/dL (32.0-36.0); Mean Corpuscular Volume 97.1 fL (80.0-100.0); Monocytes # (auto) 0.3 10 ^3/uL (0-1.3); Monocytes % (auto) 9.4 % (0.0-12.0); Neutrophils # (auto) 1.7 10 ^3/uL (1.6-8.6); Nucleated Red Blood Cells % 0.1 %; Red Blood Cells 3.81 10^6/uL (4.5-5.90); Red Cell Distribution Width 13.4 % (11.8-14.3); White Blood Cell 3.4 10^3/uL (4.4-10.8)
[2021-05-16 13:00] VITALS: BP 134/61
[2021-05-16] MEDS ORDERED: ASPI1TAB20 PO (14:46)
[2021-05-16] MEDS ORDERED: DONEPEZIL HYDROCHLORIDE 5 MG TAB PO SCH (22:00)
[2021-05-16] MEDS ORDERED: ATORVASTATIN 20 MG TAB PO SCH (22:00)
== END 2021-05-16 17:30 | disposition home or self-care (01) | DRG 303 ==
LOC: ER 18:12 → EDBD 18:12 → TELE 22:35 → TELE-WESTW 05-16 03:15
PROVIDERS: ADMIT Nurse Practitioner; ATTEND Internal Medicine
DX: I25.110 Atherosclerotic heart disease of native coronary artery with unstable angina pectoris (principal); I10 Essential (primary) hypertension; E78.5 Hyperlipidemia, unspecified; G40.909 Epilepsy, unspecified, not intractable, without status epilepticus; R00.1 Bradycardia, unspecified; Z90.49 Acquired absence of other specified parts of digestive tract; Z82.49 Family history of ischemic heart disease and other diseases of the circulatory system; Z98.61 Coronary angioplasty status; Z86.718 Personal history of other venous thrombosis and embolism; Z79.01 Long term (current) use of anticoagulants; Z20.822 Contact with and (suspected) exposure to COVID-19
CPT/HCPCS: 36415; 71045; 80048; 80053; 81001; 83735; 83880; 84443; 84484; 85025; 85379; 87426; 93005; 93306; G0378

== ENCOUNTER 2021-05-27 16:20 | Inpatient (IN) | payer MEDICARE, OTHER ==
[~2021-05-27] VITALS: Ht 180.3 cm; Wt 92.4 kg
[~2021-05-27 16:20] MED LIST changes: +APIX5TAB PO; +ASPI1TAB20 PO; -ASPI81CH43 PO; -CLOP75TA28 PO; +LEVO5TAB25 PO; +MELO1TAB56 PO; +TRAZ100T3 PO; -TRAZ50TA2 PO
[2021-05-27] MEDS ORDERED: MORPHINE SULFATE 4 MG/ML SYR/VIAL IV ONE (18:45)
[2021-05-27 22:19] LABS: Basophils # (auto) 0 10 ^3/uL (0-0.2); Basophils % (auto) 0.4 % (0.0-2.0); Eosinophils # (auto) 0.1 10 ^3/uL (0-0.8); Eosinophils % (auto) 0.8 % (0.0-7.0); Hematocrit 39.2 % (41.0-53.0); Hemoglobin 13.5 g/dL (13.5-17.5); Lymphocytes # (auto) 1.3 10 ^3/uL (0.4-5.4); Lymphocytes % (auto) 17.6 % (10.0-50.0); Mean Corpuscular Hemoglobin 33.5 pg (28.0-32.0); Mean Corpuscular Hgb Conc. 34.3 g/dL (32.0-36.0); Mean Corpuscular Volume 97.4 fL (80.0-100.0); Monocytes # (auto) 0.5 10 ^3/uL (0-1.3); Monocytes % (auto) 6.5 % (0.0-12.0); Neutrophils # (auto) 5.6 10 ^3/uL (1.6-8.6); Neutrophils % (auto) 74.7 % (37.0-80.0); Red Blood Cells 4.02 10^6/uL (4.5-5.90); Red Cell Distribution Width 13.2 % (11.8-14.3); White Blood Cell 7.5 10^3/uL (4.4-10.8)
[2021-05-27 22:37] LABS: INR 1.04 (0.9-1.15)
[2021-05-27 22:40] LABS: Albumin 3.3 g/dL (3.4-5.0); BUN/Creatinine Ratio 23.4; Calcium 8.7 mg/dL (8.5-10.1); Potassium 4.1 mmol/L (3.5-5.1)
[2021-05-27 22:42] LABS: Bilirubin, Total 0.3 mg/dL (0.2-1.0); Total Protein 6.8 g/dL (6.4-8.2)
[2021-05-27] MEDS ORDERED: MORPHINE SULFATE 4 MG/ML SYR/VIAL ONE (22:53)
[2021-05-28] MEDS ORDERED: ONDANSETRON HCL 4 MG/2 ML VIAL IV PRN ×3 (00:45→13:15)
[2021-05-28] MEDS ORDERED: hydrALAZINE HCL 20 MG/ML VL IV PRN (00:45)
[2021-05-28] MEDS: D5W/SOD CHLO 0.9% 1,000 ML IV SCH ×3 (01:31→23:43)
[2021-05-28] MEDS: MORPHINE SULFATE 4 MG/ML SYR/VIAL IV PRN ×2 (01:49→07:56)
[2021-05-28] MEDS ORDERED: HYDROcodone-ACET 5/325MG TAB PO PRN ×2 (07:15)
[2021-05-28 07:55] VITALS: BP 136/61
[2021-05-28 08:41] VITALS: BP 136/61
[2021-05-28] MEDS ORDERED: KETOROLAC TROMETH 30 MG/ML 1ML VIAL ONE (10:34)
[2021-05-28] MEDS ORDERED: VANCOMYCIN HCL 1000 MG VL ONE (10:34)
[2021-05-28] MEDS ORDERED: TRANEXAMIC ACID 20 ML ONE (10:35)
[2021-05-28] MEDS ORDERED: BUPIVACAINE W/ EPINEPH 0.25% INJ 50ML MDV ONE (10:35)
[2021-05-28] MEDS ORDERED: ceFAZolin 1GM/50ML 100 ML IV ONE (10:49)
[2021-05-28] MEDS ORDERED: MORPHINE SULF PF 2 MG/2 ML SYRG ONE (10:53)
[2021-05-28] MEDS ORDERED: TETRACAINE 1% INJ 2 ML VIAL IJ ONE (11:14)
[2021-05-28] MEDS ORDERED: MIDAZOLAM HCL 2MG/2ML 2ml VIAL (1mg/ml) ONE (11:30)
[2021-05-28] MEDS ORDERED: ROCURONIUM 10MG/ML 10ML VIAL IV ONE (11:30)
[2021-05-28] MEDS ORDERED: fentaNYL CITRATE 5 ML ONE (11:30)
[2021-05-28] MEDS ORDERED: ONDANSETRON HCL 4 MG/2 ML VIAL ONE (11:32)
[2021-05-28] MEDS ORDERED: LIDOCAINE 2% (LOCAL ANESTH.) PF 5ml SDV ONE (11:32)
[2021-05-28] MEDS ORDERED: HYDROmorphone HCL 2 MG/ML VL ONE (11:56)
[2021-05-28] MEDS ORDERED: HYDROmorphone HCL 2 MG/ML VL IV PRN ×2 (13:00)
[2021-05-28] MEDS ORDERED: GLYCOPYRROLATE 0.2 MG/ML 1ML VIAL ONE (13:05)
[2021-05-28] MEDS ORDERED: NEOSTIGMINE 1 MG/ML INJ (10mg/10ML VIAL) ONE (13:05)
[2021-05-28] MEDS ORDERED: PROPOFOL 10 MG/ML 20 ML IV ONE (13:13)
[2021-05-28] MEDS ORDERED: BISACODYL 5 MG EC TAB PO PRN (13:15)
[2021-05-28] MEDS: LACTATED RINGER'S 1,000 ML IV SCH ×2 (13:15→19:42)
[2021-05-28] MEDS ORDERED: ceFAZolin 1GM/50ML 50 ML IV SCH (14:00)
[2021-05-28 14:30] VITALS: BP 136/57
[2021-05-28 16:00] VITALS: BP 132/55
[2021-05-28 16:55] VITALS: BP 125/53
[2021-05-28] MEDS ORDERED: PATIENTS OWN MEDICATION (Trazodone Hcl 1 TAB) PO SCH (18:00)
[2021-05-28] MEDS: PANTOPRAZOLE 40 MG TAB PO SCH (18:30)
[2021-05-28] MEDS: MULTIPLE VITAMIN TAB PO SCH (18:30)
[2021-05-28] MEDS: ATORVASTATIN 20 MG TAB PO SCH (21:05)
[2021-05-28] MEDS: DOCUSATE SOD 100 MG CAP PO SCH (21:05)
[2021-05-28] MEDS: traZODone HCL 50 MG TAB PO SCH (21:05)
[2021-05-28] MEDS: APIXABAN 5 MG TAB PO SCH (21:05)
[2021-05-28] MEDS: LACOSAMIDE 50 MG TAB PO SCH (21:06)
[2021-05-28] MEDS: TOPIRAMATE 100 MG TAB PO SCH (21:06)
[2021-05-28] MEDS: levETIRAcetam 500 MG TAB PO SCH (21:07)
[2021-05-28 21:59] VITALS: BP 120/56
[2021-05-28] MEDS ORDERED: PATIENTS OWN MEDICATION (Lacosamide (Vimpat) 200 MG) PO SCH (22:00)
[2021-05-28] MEDS ORDERED: ATORVASTATIN 20 MG TAB PO SCH (22:00)
[2021-05-28] MEDS ORDERED: levETIRAcetam 500 MG TAB PO SCH (22:00)
[2021-05-28] MEDS ORDERED: TOPIRAMATE 200 MG PO SCH (22:00)
[2021-05-29] MEDS: ceFAZolin 1GM/50ML 50 ML IV SCH ×2 (02:11→09:36)
[2021-05-29 05:12] VITALS: BP 123/58
[2021-05-29 05:40] LABS: Basophils # (auto) 0 10 ^3/uL (0-0.2); Basophils % (auto) 0.3 % (0.0-2.0); Eosinophils # (auto) 0.1 10 ^3/uL (0-0.8); Eosinophils % (auto) 2.3 % (0.0-7.0); Hematocrit 32.3 % (41.0-53.0); Hemoglobin 11.2 g/dL (13.5-17.5); Lymphocytes # (auto) 0.8 10 ^3/uL (0.4-5.4); Lymphocytes % (auto) 11.9 % (10.0-50.0); Mean Corpuscular Hemoglobin 33.9 pg (28.0-32.0); Mean Corpuscular Hgb Conc. 34.8 g/dL (32.0-36.0); Mean Corpuscular Volume 97.4 fL (80.0-100.0); Monocytes # (auto) 0.5 10 ^3/uL (0-1.3); Monocytes % (auto) 8.6 % (0.0-12.0); Neutrophils # (auto) 4.9 10 ^3/uL (1.6-8.6); Neutrophils % (auto) 76.9 % (37.0-80.0); Nucleated Red Blood Cells % 0.1 %; Red Blood Cells 3.31 10^6/uL (4.5-5.90); Red Cell Distribution Width 13.5 % (11.8-14.3); White Blood Cell 6.3 10^3/uL (4.4-10.8)
[2021-05-29 06:00] LABS: Potassium 3.9 mmol/L (3.5-5.1)
[2021-05-29 06:03] LABS: Albumin 2.7 g/dL (3.4-5.0); BUN/Creatinine Ratio 19.6; Calcium 7.5 mg/dL (8.5-10.1)
[2021-05-29 06:12] LABS: Bilirubin, Total 0.5 mg/dL (0.2-1.0); Total Protein 5.2 g/dL (6.4-8.2)
[2021-05-29] MEDS: DONEPEZIL HYDROCHLORIDE 5 MG TAB PO SCH (06:13)
[2021-05-29] MEDS: FERROUS SULFATE 325mg EC TAB PO SCH (06:13)
[2021-05-29] MEDS ORDERED: PATIENTS OWN MEDICATION (Donepezil Hydrochloride (Donepezil Hcl) 1 TAB) PO SCH (07:00)
[2021-05-29] MEDS ORDERED: PATIENTS OWN MEDICATION (Escitalopram Oxalate 1 TAB) PO SCH (07:00)
[2021-05-29 09:00] VITALS: BP 141/56
[2021-05-29] MEDS: LACTATED RINGER'S 1,000 ML IV SCH ×2 (09:15→19:15)
[2021-05-29] MEDS: MULTIPLE VITAMIN TAB PO SCH (09:30)
[2021-05-29] MEDS: PANTOPRAZOLE 40 MG TAB PO SCH (09:30)
[2021-05-29] MEDS: TOPIRAMATE 100 MG TAB PO SCH ×2 (09:30→22:22)
[2021-05-29] MEDS: LACOSAMIDE 50 MG TAB PO SCH ×2 (09:30→22:23)
[2021-05-29] MEDS: DOCUSATE SOD 100 MG CAP PO SCH ×2 (09:30→22:20)
[2021-05-29] MEDS: APIXABAN 5 MG TAB PO SCH ×2 (09:30→22:21)
[2021-05-29] MEDS: MORPHINE SULFATE INJECTION 2 MG/ML SYRG IV PRN ×3 (09:35→23:34)
[2021-05-29] MEDS: levETIRAcetam 500 MG TAB PO SCH ×2 (10:04→22:22)
[2021-05-29] MEDS: CITALOPRAM HYDROBR 20 MG TAB PO SCH (10:20)
[2021-05-29] MEDS: ASPirin 81 mg TAB PO SCH (11:15)
[2021-05-29 13:11] VITALS: BP 104/52
[2021-05-29] MEDS: D5W/SOD CHLO 0.9% 1,000 ML IV SCH (16:45)
[2021-05-29 17:00] VITALS: BP 134/77
[2021-05-29 22:00] VITALS: BP 133/53
[2021-05-29] MEDS: traZODone HCL 50 MG TAB PO SCH (22:21)
[2021-05-29] MEDS: ATORVASTATIN 20 MG TAB PO SCH (22:22)
[2021-05-30 04:30] VITALS: BP_SYST 121; BP_SYST 146; BP_DIAS 53; BP_DIAS 56
[2021-05-30 06:02] LABS: Hematocrit 31.7 % (41.0-53.0); Hemoglobin 11.4 g/dL (13.5-17.5)
[2021-05-30] MEDS: FERROUS SULFATE 325mg EC TAB PO SCH (06:57)
[2021-05-30] MEDS: DONEPEZIL HYDROCHLORIDE 5 MG TAB PO SCH (06:58)
[2021-05-30 08:00] VITALS: BP 136/53
[2021-05-30] MEDS: CITALOPRAM HYDROBR 20 MG TAB PO SCH (09:40)
[2021-05-30] MEDS: ASPirin 81 mg TAB PO SCH (09:40)
[2021-05-30] MEDS: DOCUSATE SOD 100 MG CAP PO SCH ×2 (09:40→22:00)
[2021-05-30] MEDS: APIXABAN 5 MG TAB PO SCH ×2 (09:40→22:00)
[2021-05-30] MEDS: TOPIRAMATE 100 MG TAB PO SCH ×2 (09:41→22:00)
[2021-05-30] MEDS: MULTIPLE VITAMIN TAB PO SCH (09:41)
[2021-05-30] MEDS: PANTOPRAZOLE 40 MG TAB PO SCH (09:41)
[2021-05-30] MEDS: LACOSAMIDE 50 MG TAB PO SCH ×2 (09:41→22:00)
[2021-05-30] MEDS: levETIRAcetam 500 MG TAB PO SCH ×2 (09:42→22:00)
[2021-05-30 12:00] VITALS: BP 107/52
[2021-05-30 16:00] VITALS: BP 139/58
[2021-05-30] MEDS ORDERED: ACETAMINOPHEN 325 MG TAB PO PRN (16:30)
[2021-05-30] MEDS: D5W/SOD CHLO 0.9% 1,000 ML IV SCH (19:25)
[2021-05-30 21:35] VITALS: BP 139/61
[2021-05-30] MEDS: ATORVASTATIN 20 MG TAB PO SCH (22:00)
[2021-05-30] MEDS: traZODone HCL 50 MG TAB PO SCH (22:00)
[2021-05-30] MEDS ORDERED: ATORVASTATIN 20 MG TAB ONE (23:14)
[2021-05-31] MEDS: LACTATED RINGER'S 1,000 ML IV SCH (01:15)
[2021-05-31 05:48] VITALS: BP 146/60
[2021-05-31] MEDS: DONEPEZIL HYDROCHLORIDE 5 MG TAB PO SCH (07:24)
[2021-05-31] MEDS: FERROUS SULFATE 325mg EC TAB PO SCH (07:24)
[2021-05-31 08:00] VITALS: BP_SYST 146; BP_DIAS 60; BP_DIAS 90
[2021-05-31 09:38] LABS: Hematocrit 33.2 % (41.0-53.0); Hemoglobin 11.3 g/dL (13.5-17.5)
[2021-05-31] MEDS: LACOSAMIDE 50 MG TAB PO SCH (10:00)
[2021-05-31] MEDS: MULTIPLE VITAMIN TAB PO SCH (10:00)
[2021-05-31] MEDS: APIXABAN 5 MG TAB PO SCH (10:00)
[2021-05-31] MEDS: DOCUSATE SOD 100 MG CAP PO SCH (10:00)
[2021-05-31] MEDS: levETIRAcetam 500 MG TAB PO SCH (10:00)
[2021-05-31] MEDS: TOPIRAMATE 100 MG TAB PO SCH (10:00)
[2021-05-31] MEDS: PANTOPRAZOLE 40 MG TAB PO SCH (10:00)
[2021-05-31] MEDS: CITALOPRAM HYDROBR 20 MG TAB PO SCH (10:39)
[2021-05-31] MEDS: ASPirin 81 mg TAB PO SCH (10:39)
[2021-05-31] MEDS: D5W/SOD CHLO 0.9% 1,000 ML IV SCH (10:40)
[2021-05-31 12:00] VITALS: BP 147/65
[2021-05-31 12:48] VITALS: BP 146/60
== END 2021-05-31 16:46 | disposition home health service (06) | DRG 521 ==
LOC: EDBD 16:20 → ER 16:20 → OVERFLOW 05-28 00:38 → WEST WING 05-28 02:04
PROVIDERS: ADMIT Nurse Practitioner; ATTEND Family Medicine
PROC: 0SRS0JZ Replacement of Left Hip Joint, Femoral Surface with Synthetic Substitute, Open Approach (ICD-10-PCS; principal; 2021-05-28 11:24)
DX: S72.002A Fracture of unspecified part of neck of left femur, initial encounter for closed fracture (principal); E43 Unspecified severe protein-calorie malnutrition; R71.0 Precipitous drop in hematocrit; R64 Cachexia; I25.10 Atherosclerotic heart disease of native coronary artery without angina pectoris; I10 Essential (primary) hypertension; Z20.822 Contact with and (suspected) exposure to COVID-19; E78.00 Pure hypercholesterolemia, unspecified; E78.5 Hyperlipidemia, unspecified; W01.0XXA Fall on same level from slipping, tripping and stumbling without subsequent striking against object, initial encounter; Z79.01 Long term (current) use of anticoagulants; Z82.49 Family history of ischemic heart disease and other diseases of the circulatory system; Z86.718 Personal history of other venous thrombosis and embolism; Z86.73 Personal history of transient ischemic attack (TIA), and cerebral infarction without residual deficits; Z95.5 Presence of coronary angioplasty implant and graft; Z90.49 Acquired absence of other specified parts of digestive tract; Y93.89 Activity, other specified; Y92.098 Other place in other non-institutional residence as the place of occurrence of the external cause; Y99.8 Other external cause status; Z68.23 Body mass index [BMI] 23.0-23.9, adult
CPT/HCPCS: 36415; 71045; 72170; 73501; 73502; 80053; 85014; 85018; 85025; 85610; 86850; 86900; 86901; 87426; 93005; 96365; 96375; 97110; 97116; 97163; 97530; G0378; J0690; J1885; J2001; J2250; J2405; J2704; J7042

== ENCOUNTER 2021-06-05 07:44 | Inpatient (IN) | payer MEDICARE, OTHER ==
[~2021-06-05] VITALS: Ht 182.9 cm; Wt 89.9 kg
[~2021-06-05 07:44] MED LIST changes: -BUPR75TA11 PO; -TOPI50TA53 PO
[2021-06-05 10:29] LABS: Basophils # (auto) 0 10 ^3/uL (0-0.2); Basophils % (auto) 0.3 % (0.0-2.0); Eosinophils # (auto) 0.1 10 ^3/uL (0-0.8); Eosinophils % (auto) 0.7 % (0.0-7.0); Hematocrit 30.8 % (41.0-53.0); Hemoglobin 10.8 g/dL (13.5-17.5); Lymphocytes # (auto) 1.2 10 ^3/uL (0.4-5.4); Lymphocytes % (auto) 13.8 % (10.0-50.0); Mean Corpuscular Hemoglobin 33.9 pg (28.0-32.0); Mean Corpuscular Hgb Conc. 35.2 g/dL (32.0-36.0); Mean Corpuscular Volume 96.4 fL (80.0-100.0); Monocytes # (auto) 0.9 10 ^3/uL (0-1.3); Monocytes % (auto) 10.1 % (0.0-12.0); Neutrophils # (auto) 6.5 10 ^3/uL (1.6-8.6); Neutrophils % (auto) 75.1 % (37.0-80.0); Red Cell Distribution Width 13.6 % (11.8-14.3); White Blood Cell 8.6 10^3/uL (4.4-10.8)
[2021-06-05 10:50] LABS: Albumin 2.6 g/dL (3.4-5.0); Calcium 8.4 mg/dL (8.5-10.1); Potassium 4.3 mmol/L (3.5-5.1)
[2021-06-05 10:56] LABS: BUN/Creatinine Ratio 27.8; Bilirubin, Total 0.5 mg/dL (0.2-1.0); Total Protein 6.6 g/dL (6.4-8.2)
[2021-06-05] MEDS ORDERED: MORPHINE SULFATE 4 MG/ML SYR/VIAL IV ONE (11:45)
[2021-06-05] MEDS ORDERED: ONDANSETRON HCL 4 MG/2 ML VIAL IV ONE (11:45)
[2021-06-05] MEDS ORDERED: NITROGLYCERIN 0.4 MG SL TAB SL PRN ×2 (16:45→17:15)
[2021-06-05] MEDS ORDERED: MORPHINE SULFATE INJECTION 2 MG/ML SYRG IV PRN ×2 (16:45→17:15)
[2021-06-05] MEDS ORDERED: ACETAMINOPHEN 325 MG TAB PO PRN (17:15)
[2021-06-05] MEDS ORDERED: ALUM & MAG HYDROX-SIMETH LIQ(MAALOX) 30 ML PO PRN (17:15)
[2021-06-05] MEDS ORDERED: ONDANSETRON HCL 4 MG/2 ML VIAL IV PRN (17:15)
[2021-06-05] MEDS ORDERED: HYDROcodone-ACET 5/325MG TAB PO PRN (17:15)
[2021-06-05] MEDS ORDERED: DOCUSATE SOD 100 MG CAP PO PRN (17:15)
[2021-06-05] MEDS: FERROUS SULFATE 300 MG/5 ML ORAL LIQ PO SCH (17:50)
[2021-06-05] MEDS: SODIUM CHLORIDE 0.9% 1,000 ML IV SCH (17:50)
[2021-06-05] MEDS: MORPHINE SULFATE INJECTION 2 MG/ML SYRG IV PRN (17:51)
[2021-06-05] MEDS: APIXABAN 5 MG TAB PO SCH (22:00)
[2021-06-05] MEDS: TOPIRAMATE 100 MG TAB PO SCH (23:00)
[2021-06-05] MEDS: DONEPEZIL HYDROCHLORIDE 5 MG TAB PO SCH (23:00)
[2021-06-05] MEDS: ATORVASTATIN 20 MG TAB PO SCH (23:00)
[2021-06-05] MEDS: levETIRAcetam 500 MG TAB PO SCH (23:00)
[2021-06-06 01:30] VITALS: BP 139/62
[2021-06-06] MEDS: MORPHINE SULFATE INJECTION 2 MG/ML SYRG IV PRN ×3 (01:43→13:10)
[2021-06-06 05:00] VITALS: BP 131/60
[2021-06-06 06:05] LABS: Basophils # (auto) 0 10 ^3/uL (0-0.2); Basophils % (auto) 0.4 % (0.0-2.0); Eosinophils # (auto) 0.2 10 ^3/uL (0-0.8); Eosinophils % (auto) 2.8 % (0.0-7.0); Hemoglobin 10.2 g/dL (13.5-17.5); Lymphocytes # (auto) 1.3 10 ^3/uL (0.4-5.4); Lymphocytes % (auto) 17.8 % (10.0-50.0); Mean Corpuscular Hemoglobin 32.9 pg (28.0-32.0); Mean Corpuscular Hgb Conc. 34.1 g/dL (32.0-36.0); Mean Corpuscular Volume 96.4 fL (80.0-100.0); Monocytes # (auto) 0.7 10 ^3/uL (0-1.3); Monocytes % (auto) 9.1 % (0.0-12.0); Neutrophils # (auto) 5.2 10 ^3/uL (1.6-8.6); Neutrophils % (auto) 69.9 % (37.0-80.0); Red Blood Cells 3.11 10^6/uL (4.5-5.90); Red Cell Distribution Width 13.4 % (11.8-14.3); White Blood Cell 7.4 10^3/uL (4.4-10.8)
[2021-06-06 06:18] LABS: INR 1.06 (0.9-1.15); Partial Thromboplastin Time 26.3 sec (23.6-33.0)
[2021-06-06 06:40] LABS: Albumin 2.3 g/dL (3.4-5.0); BUN/Creatinine Ratio 24.5; Bilirubin, Total 0.4 mg/dL (0.2-1.0); Calcium 7.9 mg/dL (8.5-10.1); Magnesium 3.1 mg/dL (1.6-2.6); Phosphorus 3.1 mg/dL (2.5-4.90); Uric Acid 2.6 mg/dL (3.5-7.2)
[2021-06-06] MEDS ORDERED: HYDROcodone-ACET 10/325MG TAB PO PRN (07:45)
[2021-06-06] MEDS ORDERED: HYDROmorphone HCL 2 MG/ML VL IV PRN (07:45)
[2021-06-06] MEDS: FERROUS SULFATE 300 MG/5 ML ORAL LIQ PO SCH ×3 (08:00→18:00)
[2021-06-06 09:00] VITALS: BP 125/59
[2021-06-06] MEDS: SODIUM CHLORIDE 0.9% 1,000 ML IV SCH (09:55)
[2021-06-06] MEDS: CITALOPRAM HYDROBR 20 MG TAB PO SCH (11:00)
[2021-06-06] MEDS: APIXABAN 5 MG TAB PO SCH ×2 (11:00→21:57)
[2021-06-06] MEDS: TOPIRAMATE 100 MG TAB PO SCH ×2 (11:00→21:56)
[2021-06-06] MEDS: levETIRAcetam 500 MG TAB PO SCH ×2 (11:00→21:57)
[2021-06-06] MEDS: ASPirin-EC 81 mg tab PO SCH (11:00)
[2021-06-06 13:00] VITALS: BP 124/55
[2021-06-06 17:00] VITALS: BP 126/62
[2021-06-06] MEDS: DONEPEZIL HYDROCHLORIDE 5 MG TAB PO SCH (21:55)
[2021-06-06] MEDS: LACOSAMIDE 50 MG TAB PO SCH (21:55)
[2021-06-06] MEDS: ATORVASTATIN 20 MG TAB PO SCH (21:57)
[2021-06-06 22:00] VITALS: BP 127/63
[2021-06-07] MEDS: MORPHINE SULFATE INJECTION 2 MG/ML SYRG IV PRN ×2 (00:14→12:00)
[2021-06-07] MEDS: SODIUM CHLORIDE 0.9% 1,000 ML IV SCH (02:35)
[2021-06-07 05:30] VITALS: BP 121/63
[2021-06-07] MEDS: FERROUS SULFATE 300 MG/5 ML ORAL LIQ PO SCH ×2 (08:22→12:00)
[2021-06-07 08:41] VITALS: BP 129/63
[2021-06-07] MEDS ORDERED: MELOXICAM 15 MG PO SCH (10:00)
[2021-06-07] MEDS: LACOSAMIDE 50 MG TAB PO SCH (10:00)
[2021-06-07] MEDS: ASPirin-EC 81 mg tab PO SCH (10:00)
[2021-06-07] MEDS: TOPIRAMATE 100 MG TAB PO SCH (10:00)
[2021-06-07] MEDS: CITALOPRAM HYDROBR 20 MG TAB PO SCH (10:00)
[2021-06-07] MEDS: APIXABAN 5 MG TAB PO SCH (10:00)
[2021-06-07] MEDS: levETIRAcetam 500 MG TAB PO SCH (10:00)
[2021-06-07 12:50] VITALS: BP 136/53
[2021-06-07] MEDS ORDERED: TOPIRAMATE 100 MG TAB PO SCH (14:00)
[2021-06-07 17:34] VITALS: BP 127/57
== END 2021-06-07 18:00 | DRG 536 ==
LOC: EDBD 07:44 → ER 07:44 → TELE 18:43 → TELE-WESTW 06-06 01:18
PROVIDERS: ADMIT Hospitalist; ATTEND Family Medicine
DX: S72.122A Displaced fracture of lesser trochanter of left femur, initial encounter for closed fracture (principal); D68.9 Coagulation defect, unspecified; I69.354 Hemiplegia and hemiparesis following cerebral infarction affecting left non-dominant side; E44.0 Moderate protein-calorie malnutrition; I25.10 Atherosclerotic heart disease of native coronary artery without angina pectoris; I99.8 Other disorder of circulatory system; G40.909 Epilepsy, unspecified, not intractable, without status epilepticus; Z20.822 Contact with and (suspected) exposure to COVID-19; E78.00 Pure hypercholesterolemia, unspecified; Z96.642 Presence of left artificial hip joint; W18.39XA Other fall on same level, initial encounter; E78.5 Hyperlipidemia, unspecified; I10 Essential (primary) hypertension; Z79.01 Long term (current) use of anticoagulants; Z79.82 Long term (current) use of aspirin; Z79.899 Other long term (current) drug therapy; Z82.49 Family history of ischemic heart disease and other diseases of the circulatory system; Z86.718 Personal history of other venous thrombosis and embolism; Z98.61 Coronary angioplasty status; Z90.49 Acquired absence of other specified parts of digestive tract; Y93.89 Activity, other specified; Y92.89 Other specified places as the place of occurrence of the external cause; Y99.8 Other external cause status; Z68.26 Body mass index [BMI] 26.0-26.9, adult
CPT/HCPCS: 36415; 72192; 73502; 80053; 80201; 82306; 82542; 83036; 83735; 83880; 84100; 84484; 84550; 85025; 85379; 85610; 85730; 87040; 87081; 87426; 93005; 96374; 96375; 96376; G0378; J2405

== ENCOUNTER 2021-06-21 16:35 | Inpatient (IN) | payer MEDICARE, OTHER ==
[~2021-06-21] VITALS: Ht 182.9 cm; Wt 83.9 kg
[2021-06-21 18:32] LABS: Basophils # (auto) 0.1 10 ^3/uL (0-0.2); Basophils % (auto) 1.3 % (0.0-2.0); Eosinophils # (auto) 0.1 10 ^3/uL (0-0.8); Hematocrit 35.1 % (41.0-53.0); Lymphocytes # (auto) 1.7 10 ^3/uL (0.4-5.4); Lymphocytes % (auto) 30.8 % (10.0-50.0); Mean Corpuscular Hemoglobin 33.1 pg (28.0-32.0); Mean Corpuscular Hgb Conc. 34.4 g/dL (32.0-36.0); Mean Corpuscular Volume 96.3 fL (80.0-100.0); Monocytes # (auto) 0.4 10 ^3/uL (0-1.3); Monocytes % (auto) 7.3 % (0.0-12.0); Neutrophils # (auto) 3.2 10 ^3/uL (1.6-8.6); Neutrophils % (auto) 58.6 % (37.0-80.0); Red Blood Cells 3.64 10^6/uL (4.5-5.90); Red Cell Distribution Width 13.9 % (11.8-14.3); White Blood Cell 5.5 10^3/uL (4.4-10.8)
[2021-06-21 18:45] LABS: INR 1.05 (0.9-1.15)
[2021-06-21 18:46] LABS: Albumin 3.1 g/dL (3.4-5.0); BUN/Creatinine Ratio 16.2; Calcium 8.6 mg/dL (8.5-10.1); Potassium 4.5 mmol/L (3.5-5.1)
[2021-06-21 18:49] LABS: Bilirubin, Total 0.3 mg/dL (0.2-1.0); Total Protein 7.3 g/dL (6.4-8.2)
[2021-06-21] MEDS ORDERED: ACETAMINOPHEN 325 MG TAB PO PRN (22:00)
[2021-06-21] MEDS ORDERED: ATORVASTATIN 20 MG TAB PO SCH (22:00)
[2021-06-21] MEDS ORDERED: HYDROcodone-ACET 5/325MG TAB PO PRN (22:00)
[2021-06-21] MEDS ORDERED: ONDANSETRON HCL 4 MG/2 ML VIAL IV PRN (22:00)
[2021-06-21] MEDS ORDERED: SODIUM CHLORIDE 0.9% 1,000 ML IV SCH (22:00)
[2021-06-21] MEDS ORDERED: DOCUSATE SOD 100 MG CAP PO PRN (22:00)
[2021-06-21] MEDS: ASCORBIC ACID 500 MG TAB PO SCH (23:21)
[2021-06-22] MEDS ORDERED: NITROGLYCERIN 0.4 MG SL TAB SL PRN (00:15)
[2021-06-22] MEDS ORDERED: MORPHINE SULFATE INJECTION 2 MG/ML SYRG IV PRN (00:15)
[2021-06-22 06:45] LABS: Basophils # (auto) 0 10 ^3/uL (0-0.2); Basophils % (auto) 0.6 % (0.0-2.0); Eosinophils # (auto) 0.2 10 ^3/uL (0-0.8); Eosinophils % (auto) 4.1 % (0.0-7.0); Hematocrit 37.2 % (41.0-53.0); Hemoglobin 12.3 g/dL (13.5-17.5); Lymphocytes # (auto) 1.4 10 ^3/uL (0.4-5.4); Lymphocytes % (auto) 32.1 % (10.0-50.0); Mean Corpuscular Hemoglobin 32.4 pg (28.0-32.0); Mean Corpuscular Hgb Conc. 33.2 g/dL (32.0-36.0); Mean Corpuscular Volume 97.6 fL (80.0-100.0); Monocytes # (auto) 0.4 10 ^3/uL (0-1.3); Monocytes % (auto) 9.1 % (0.0-12.0); Neutrophils # (auto) 2.4 10 ^3/uL (1.6-8.6); Neutrophils % (auto) 54.1 % (37.0-80.0); Nucleated Red Blood Cells % 0.1 %; Red Blood Cells 3.81 10^6/uL (4.5-5.90); Red Cell Distribution Width 14.1 % (11.8-14.3); White Blood Cell 4.4 10^3/uL (4.4-10.8)
[2021-06-22 07:07] LABS: Calcium 8.7 mg/dL (8.5-10.1); Potassium 3.7 mmol/L (3.5-5.1)
[2021-06-22 07:10] LABS: BUN/Creatinine Ratio 15.9; Bilirubin, Total 0.2 mg/dL (0.2-1.0); Total Protein 7.3 g/dL (6.4-8.2)
[2021-06-22] MEDS ORDERED: TOPI100T68 PO (08:45)
[2021-06-22] MEDS ORDERED: MULTIPLE VITAMIN TAB PO SCH (10:00)
[2021-06-22] MEDS ORDERED: ASPirin 81 mg TAB PO SCH (10:00)
[2021-06-22] MEDS ORDERED: FAMOTIDINE (10MG/ML) 2ML VL IV SCH (10:00)
[2021-06-22] MEDS ORDERED: ENOXAPARIN SOD 40 MG/0.4 ML SYRINGE SC SCH (10:00)
[2021-06-22] MEDS ORDERED: ZINC SULFATE 220mg CAP or TAB PO SCH (10:00)
[2021-06-22] MEDS: ASCORBIC ACID 500 MG TAB PO SCH (10:04)
[2021-06-22] MEDS ORDERED: ENOXAPARIN SOD 40 MG/0.4 ML SYRINGE SC ONE (11:30)
[2021-06-22] MEDS ORDERED: IOHEXOL 350 MG/ML 100ML IJ ONE (11:54)
[2021-06-22 17:15] VITALS: BP 140/55
[2021-06-22] MEDS ORDERED: ENOXAPARIN SOD 80 MG/0.8ML SYRINGE SC SCH (22:00)
== END 2021-06-22 17:19 | disposition left against medical advice (07) | DRG 561 ==
LOC: ER 16:39 → OVERFLOW 06-22 00:05
PROVIDERS: ADMIT Nurse Practitioner Family; ATTEND Internal Medicine
DX: M97.02XA Periprosthetic fracture around internal prosthetic left hip joint, initial encounter (principal); I10 Essential (primary) hypertension; E78.5 Hyperlipidemia, unspecified; Z96.643 Presence of artificial hip joint, bilateral; G40.909 Epilepsy, unspecified, not intractable, without status epilepticus; W18.39XA Other fall on same level, initial encounter; I25.10 Atherosclerotic heart disease of native coronary artery without angina pectoris; Z20.822 Contact with and (suspected) exposure to COVID-19; Z82.49 Family history of ischemic heart disease and other diseases of the circulatory system; Z98.61 Coronary angioplasty status; Z90.49 Acquired absence of other specified parts of digestive tract; Y93.89 Activity, other specified; Y92.098 Other place in other non-institutional residence as the place of occurrence of the external cause; Y99.8 Other external cause status; Z53.29 Procedure and treatment not carried out because of patient's decision for other reasons
CPT/HCPCS: 36415; 71045; 73502; 73706; 80053; 82542; 82607; 85025; 85379; 87426; 93005; 93971; 96360; 99291; G0378; J3490; J7060